=== PATIENT | female | born 1960 | race Caucasian/White ===

== ENCOUNTER → 2019-05-16 | Outpatient (CLI) | payer OTHER | LOC: CAT 17:04 | DX: K57.32 Diverticulitis of large intestine without perforation or abscess without bleeding (principal); K57.30 Diverticulosis of large intestine without perforation or abscess without bleeding; M87.9 Osteonecrosis, unspecified; M48.56XA Collapsed vertebra, not elsewhere classified, lumbar region, initial encounter for fracture ==

== ENCOUNTER → 2020-07-17 | Outpatient (CLI) | payer OTHER | LOC: LAB 09:12 | PROVIDERS: ATTEND Family Medicine | DX: Z20.828 Contact with and (suspected) exposure to other viral communicable diseases (principal) ==

== ENCOUNTER → 2020-10-16 | Outpatient (CLI) | payer OTHER | LOC: CAT 09-12 09:36 | PROVIDERS: ATTEND Family Medicine | DX: Z13.6 Encounter for screening for cardiovascular disorders (principal); I25.10 Atherosclerotic heart disease of native coronary artery without angina pectoris; E78.00 Pure hypercholesterolemia, unspecified ==

== ENCOUNTER → 2020-10-16 | Outpatient (CLI) | payer OTHER | LOC: NUC 09-12 09:40 → RAD 08:44 → NUC 13:15 | PROVIDERS: ATTEND Family Medicine | DX: Z12.31 Encounter for screening mammogram for malignant neoplasm of breast (principal); S32.050S Wedge compression fracture of fifth lumbar vertebra, sequela; X58.XXXS Exposure to other specified factors, sequela ==